=== PATIENT | male | born 1980 | race Caucasian/White ===

== ENCOUNTER → 2023-06-11 | Emergency (ER) | payer BC ==
[~2023-06-11] VITALS: Ht 188 cm; Wt 93.0 kg
[~2023-06-11] MED LIST: ACETAMINOPHEN ES 500 MG TABLET ONE; ACETAMINOPHEN ES 500 MG TABLET PO ONE; LOPERAMIDE HCL (2 MG CAP) 2 MG CAPSULE ONE; LOPERAMIDE HCL (2 MG CAP) 2 MG CAPSULE PO ONE; ONDA4TAB5 PO; ONDANSETRON 4 MG TAB.RAPDIS ONE; ONDANSETRON 4 MG TAB.RAPDIS SL ONE
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
[2023-06-11 03:35] VITALS: BP 132/78; TEMP 98.6; O2SAT 100
--- NOTE | 2023-06-11 03:35 | NUR ---
Patient discharged to home in stable condition. Written and verbal after care instructions given. Patient verbalizes understanding of instruction. Pt is ambulatory with a steady gait
== END | disposition home or self-care (01) ==
LOC: ER 01:45
DX: R51.9 Headache, unspecified (principal); R19.7 Diarrhea, unspecified; R11.0 Nausea; V99.XXXA Unspecified transport accident, initial encounter; Y93.89 Activity, other specified; Y92.89 Other specified places as the place of occurrence of the external cause; Y99.8 Other external cause status
CPT/HCPCS: 99284; Q0162